=== PATIENT | male | born 1990 | race Caucasian/White ===

== ENCOUNTER 2022-01-14 13:30 | Inpatient (IN) | payer OTHER ==
[~2022-01-14] VITALS: Ht 165.1 cm; Wt 84.5 kg
[2022-01-14] MEDS ORDERED: ONDANSETRON HCL 4MG/2ML INJ IV STA ×2 (14:58→17:21)
[2022-01-14] MEDS ORDERED: MORPHINE SULFATE 4 MG/ML CPJ (NOT FOR IM USE) IV STA ×2 (15:11→17:21)
[2022-01-14] MEDS ORDERED: SODIUM CHLORIDE 0.9% 1,000 ML IV ONE (15:15)
[2022-01-14 15:57] LABS: HEMATOCRIT. 45.9 % (42.0-52.0); HEMOGLOBIN. 15.4 g/dL (14.0-18.0); MEAN CORPUSCULAR HEMOGLOBIN 28.3 pg (28.0-32.0); MEAN PLATELET VOLUME 8.1 fl (7.4-10.4); PLATELET 315 x1000/uL (130-400); RED BLOOD CELL COUNT 5.47 mill/uL (4.7-6.1)
[2022-01-14 16:04] LABS: CHLORIDE 110 mEq/L (98-107)
[2022-01-14 19:40] LABS: PLATELET ESTIMATE NORMAL
[2022-01-14 21:40] VITALS: BP 169/115
[2022-01-14 22:13] VITALS: BP 169/115
[2022-01-14] MEDS ORDERED: ATOR40TA70 PO (23:09)
[2022-01-14] MEDS ORDERED: BUPR100T5 PO (23:09)
[2022-01-14] MEDS ORDERED: LOPHC2 MT (23:09)
[2022-01-14] MEDS ORDERED: OMEG-118 MT (23:09)
[2022-01-14] MEDS ORDERED: VALS1TAB76 MT (23:09)
[2022-01-15] VITALS: BP 135/85
[2022-01-15] MEDS ORDERED: ONDANSETRON HCL 4MG/2ML INJ IV PRN
[2022-01-15] MEDS ORDERED: CLONIDINE 0.1MG TABLET PO PRN
[2022-01-15] MEDS ORDERED: IPRATROPIUM/ALBUTEROL 0.5-3(2.5)MG/3ML NEB HHN PRN
[2022-01-15] MEDS ORDERED: ACETAMINOPHEN 325MG TABLET PO PRN
[2022-01-15] MEDS ORDERED: GUAIFENESIN 200MG/10ML SUGAR FREE UDC PO PRN
[2022-01-15] MEDS ORDERED: LORAZEPAM 2MG/ML CPJ IV PRN
[2022-01-15] MEDS ORDERED: MORPHINE SULFATE 2 MG/ML CPJ (NOT FOR IM USE) IV PRN
[2022-01-15] MEDS ORDERED: DIPHENHYDRAMINE 50MG/ML VIAL IV PRN
[2022-01-15] MEDS ORDERED: HYDRALAZINE 20MG/ML VIAL IV PRN
[2022-01-15] MEDS ORDERED: HYDROCODONE/ACETAMINOPHEN 5/325MG TABLET PO PRN
[2022-01-15] MEDS ORDERED: DOCUSATE SODIUM 100MG CAPSULE PO PRN
[2022-01-15] MEDS ORDERED: MAGNESIUM/ALUMINUM HYDROXIDE/SIMETHICONE 30ML UDC PO PRN
[2022-01-15 04:00] VITALS: BP 114/67
[2022-01-15] MEDS ORDERED: SODIUM CHLORIDE 0.9% INJ 3ML FLUSH IVF SCH (06:00)
[2022-01-15 06:31] LABS: BASOPHILS % 0.3 % (0.0-2.0); HEMOGLOBIN. 13.7 g/dL (14.0-18.0); LYMPHOCYTES % 15.1 % (20.0-50.0); MEAN CORPUSCULAR HEMOGLOBIN 28.3 pg (28.0-32.0); MEAN CORPUSCULAR VOLUME 84.5 fL (80.0-94.0); MEAN PLATELET VOLUME 8.1 fl (7.4-10.4); NEUTROPHILS % 75.6 % (40.0-76.0); PLATELET 322 x1000/uL (130-400); RED BLOOD CELL COUNT 4.84 mill/uL (4.7-6.1); RED CELL DISTRIBUTION WIDTH 13.3 % (11.6-14.6)
[2022-01-15 07:53] LABS: CHLORIDE 110 mEq/L (98-107)
[2022-01-15 08:00] VITALS: BP 131/65
[2022-01-15 08:34] LABS: *AMPHETAMINES SCREEN URINE NEGATIVE (NEGATIVE); *BARBITURATES SCREEN URINE NEGATIVE (NEGATIVE); *BENZODIAZEPINES SCREEN URINE NEGATIVE (NEGATIVE); *COCAINE SCREEN URINE NEGATIVE (NEGATIVE); CANNABINOID URINE SCREEN PRESUMTIVE POSITIVE (NEGATIVE); METHADONE URINE SCREEN NEGATIVE (NEGATIVE); OPIATES URINE SCREEN PRESUMTIVE POSITIVE (NEGATIVE); PHENCYCLIDINE URINE SCREEN NEGATIVE (NEGATIVE)
[2022-01-15] MEDS ORDERED: ENOXAPARIN 40MG/0.4ML SYR SUBCUT SCH (09:00)
[2022-01-15 12:00] VITALS: BP 127/84
[2022-01-15 12:55] VITALS: BP 127/84
== END 2022-01-15 14:32 | disposition home or self-care (01) | DRG 392 ==
LOC: ER 13:30 → EDBEDREQTM 17:32 → EDBEDREQ 17:32 → ENRESERV 19:19 → 7WST 21:28
PROVIDERS: ADMIT Internal Medicine; ATTEND Internal Medicine
DX: K21.9 Gastro-esophageal reflux disease without esophagitis (principal); I10 Essential (primary) hypertension; F12.90 Cannabis use, unspecified, uncomplicated
CPT/HCPCS: 36415; 71045; 74176; 80053; 80305; 83880; 84484; 85025; 93005; 99285; J1650; J2270; J2405; J7030